=== PATIENT | male | born 1980 | race African-American/Black ===

== ENCOUNTER 2018-12-30 09:27 | Inpatient (IN) ==
[2018-12-30] MEDS ORDERED: ONDANSETRON ODT 4 MG TABLET PO STA (10:39)
[2018-12-30] MEDS ORDERED: SODIUM CHLORIDE 0.9% 1,000 ML IV STA (11:10)
[2018-12-30] MEDS ORDERED: ONDANSETRON 4 MG/2 ML VIAL IV ONE (11:15)
[2018-12-30 11:35] LABS: Apearance,Urine Clear (Clear); Glucose,Urine (UA) Negative (Negative); Protein,Urine Negative; Urine Color Yellow (Yellow); Urine Specific Gravity 1.015 (1.001-1.035)
[2018-12-30 11:36] LABS: Bacteria,Urine Few /HPF (Few); Bilirubin,Urine Negative (Negative); Blood, Urine Negative (Negative); Ketones,Urine Negative (Negative); Nitrite,Urine Negative (Negative); RBC,Urine Rare /HPF (0-4); Squamous Epithelial Cell,Urine Rare /HPF (0-10); Urine Urobilinogen < 2.0 EU/DL (0.2-1.0); WBC,Urine Rare /HPF (0-6)
[2018-12-30 12:16] LABS: Basophils % 0.3 % (0.0-0.8); Eosinophils # 0.1 10*3/uL (0.0-0.87); Eosinophils % 0.4 % (0.00-10.9); Hematocrit 42.3 VOL% (42.0-52.0); Hemoglobin 14.1 GM/DL (14.0-18.0); Immature Granulocytes % 0.4 %; Immature Granulocytes Absolute 0.05 #; Lymphocytes # 1.2 10*3/uL (1.4-4.0); Mean Corpuscular HGB Conc 33.3 GM/DL (32-36); Mean Corpuscular Volume 85.1 FL (87-102); Mean Platelet Volume 12.3 FL (9.6-12.0); Monocytes % 8.4 % (1.7-12.7); Neutrophils % 80.5 % (38.7-73.9); Platelet Count 292 T/CUMM (130-400); Red Blood Count 4.97 MC/CUMM (3.8-5.5); Red Cell Distribution Width 14.1 % (9.3-17.3); White Blood Count 12.4 T/CUMM (4-12)
[2018-12-30 12:24] LABS: Albumin 4.1 G/DL (3.4-5.0); Bilirubin,Total 0.5 MG/DL (0.2-1.0); Calcium 8.9 MG/DL (8.5-10.1); Total Protein 7.7 G/DL (6.4-8.3)
[2018-12-30] MEDS ORDERED: POTASSIUM CHLORIDE RIDER 20 MEQ in PREMIX 1 EACH IV STA (12:54)
[2018-12-30] MEDS ORDERED: POTASSIUM CHLORIDE 20 MEQ TABLET PO STA (12:55)
[2018-12-30] MEDS ORDERED: CIPROFLOXACIN INJ 400 MG in PREMIX 1 EACH IV ONE (12:57)
[2018-12-30] MEDS ORDERED: LIDOCAINE 1%/EPI INJ 20 ML VIAL ONE (13:04)
[2018-12-30] MEDS ORDERED: BUPIVACAINE MPF 0.25% /EPI 30 ML VIAL ONE (13:04)
[2018-12-30] MEDS ORDERED: POTASSIUM CHLORIDE RIDER 100 ML IV ONE (13:06)
[2018-12-30] MEDS ORDERED: CIPROFLOXACIN 400 MG/200 ML PREMIX IV ONE (13:14)
[2018-12-30] MEDS ORDERED: POTASSIUM CHLORIDE RIDER 10 MEQ in PREMIX 1 EACH IV SCH (13:30)
[2018-12-30] MEDS ORDERED: ACETAMINOPHEN 325 MG TABLET PO PRN (14:19)
[2018-12-30] MEDS ORDERED: KETOROLAC 15 MG/1 ML VIAL IV PRN (14:19)
[2018-12-30] MEDS ORDERED: ONDANSETRON 4 MG/2 ML VIAL ONE ×2 (14:34)
[2018-12-30] MEDS ORDERED: HYDROmorphone 2 MG/1 ML VIAL ONE (14:34)
[2018-12-30] MEDS ORDERED: KETOROLAC 30 MG/1 ML VIAL ONE (14:34)
[2018-12-30] MEDS ORDERED: SEVOFLURANE 1 UNIT/15 MINUTE INH ONE (14:34)
[2018-12-30] MEDS ORDERED: GLYCOPYRROLATE 0.4 MG/2 ML VIAL ONE (14:34)
[2018-12-30] MEDS ORDERED: MIDAZOLAM 2 MG/2 ML VIAL ONE (14:34)
[2018-12-30] MEDS ORDERED: ACETAMINOPHEN 1,000 MG/100 ML VIAL IV ONE (14:34)
[2018-12-30] MEDS ORDERED: fentaNYL 100 MCG/2 ML VIAL ONE (14:34)
[2018-12-30] MEDS ORDERED: ROCURONIUM 100 MG/10 ML VIAL IV ONE (14:35)
[2018-12-30] MEDS: LACTATED RINGERS 1,000 ML IV SCH ×2 (14:35→22:09)
[2018-12-30] MEDS: HYDROmorphone 2 MG/1 ML VIAL IV PRN ×2 (14:35→14:40)
[2018-12-30] MEDS ORDERED: ONDANSETRON 4 MG/2 ML VIAL IV PRN (14:35)
[2018-12-30] MEDS ORDERED: SUCCINYLCHOLINE 200 MG/10 ML VIAL ONE (14:35)
[2018-12-30] MEDS ORDERED: NEOSTIGMINE 10 MG/10 ML VIAL ONE (14:35)
[2018-12-30] MEDS: metroNIDAZOLE INJ 500 MG in PREMIX 1 EACH IV SCH (16:29)
[2018-12-30] MEDS: MORPHINE 4 MG/1 ML VIAL IV PRN (23:55)
[2018-12-31] MEDS: metroNIDAZOLE INJ 500 MG in PREMIX 1 EACH IV SCH ×4 (00:49→22:16)
[2018-12-31] MEDS: LACTATED RINGERS 1,000 ML IV SCH ×2 (01:45→06:59)
[2018-12-31] MEDS: CIPROFLOXACIN INJ 400 MG in PREMIX 1 EACH IV SCH ×2 (02:25→14:11)
[2018-12-31 05:46] LABS: Basophils % 0.1 % (0.0-0.8); Eosinophils % 0.1 % (0.00-10.9); Hematocrit 31.7 VOL% (42.0-52.0); Hemoglobin 10.4 GM/DL (14.0-18.0); Immature Granulocytes % 0.5 %; Immature Granulocytes Absolute 0.05 #; Lymphocytes # 1.3 10*3/uL (1.4-4.0); Lymphocytes % 13.4 % (21.2-54.2); Mean Corpuscular HGB Conc 32.8 GM/DL (32-36); Mean Corpuscular Volume 86.6 FL (87-102); Mean Platelet Volume 11.5 FL (9.6-12.0); Monocytes % 6.7 % (1.7-12.7); Neutrophils % 79.2 % (38.7-73.9); Platelet Count 231 T/CUMM (130-400); Red Blood Count 3.66 MC/CUMM (3.8-5.5); Red Cell Distribution Width 14.2 % (9.3-17.3); White Blood Count 9.6 T/CUMM (4-12)
[2018-12-31] MEDS: MORPHINE 4 MG/1 ML VIAL IV PRN ×3 (05:56→22:11)
[2018-12-31 06:06] LABS: Osmolality,Calculated 280.3 MOS/KG (273-304)
[2018-12-31] MEDS: PANTOPRAZOLE 40 MG TABLET PO SCH (08:01)
[2018-12-31] MEDS ORDERED: POTASSIUM CHLORIDE 20 MEQ TABLET PO ONE ×2 (10:45→20:00)
[2018-12-31] MEDS: ONDANSETRON 4 MG/2 ML VIAL IV PRN (17:35)
[2019-01-01] MEDS: CIPROFLOXACIN INJ 400 MG in PREMIX 1 EACH IV SCH (01:07)
[2019-01-01] MEDS: ONDANSETRON 4 MG/2 ML VIAL IV PRN (01:39)
[2019-01-01] MEDS ORDERED: KETOROLAC 30 MG/1 ML VIAL IV ONE (01:52)
[2019-01-01] MEDS: metroNIDAZOLE INJ 500 MG in PREMIX 1 EACH IV SCH (06:07)
[2019-01-01 06:47] LABS: Calcium 8.3 MG/DL (8.5-10.1)
[2019-01-01 07:53] VITALS: BP 164/86
[2019-01-01] MEDS: PANTOPRAZOLE 40 MG TABLET PO SCH (08:25)
== END 2019-01-01 11:04 | disposition home or self-care (01) | DRG 340 ==
LOC: N.ED 09:27 → N.EDINP 13:20 → N.3E 15:22
PROVIDERS: ADMIT Surgery; ATTEND Surgery